=== PATIENT | female | born 1970 | race Caucasian/White ===

== ENCOUNTER → 2016-10-18 | Outpatient (CLI) | payer OTHER ==
[~2016-10-18] MED LIST: ALEVE220 M1 PO; BACITRACIN1 GM OINT TOP; DEXILANT60 MG PO; DICYCLOMINE HCL20 MG PO; LORTAB 5/500 TA1 TA2 PO; NAPROSYN500 MG PO; TYLENOL325 M1 PO
--- NOTE | ~2016-10-18 | US24 ---
[facility] A [facility] RADIOLOGY TEXT RESULTS PATIENT: DARREN THACKER LOCATION: [facility] : 66 UNIT #: [id number] AGE: [address]: Po Gracia MD SEX: F ORDER DR: [id number] [facility]. [place], [place] [address] [id number] O MR#: [id number] Acc #: [id number] NAME: DARREN THACKER. : 1970 SEX: F STUDY DATE/TIME: 10/18/2016 15:03 UNIT: [facility] ROOM: STUDY DESCRIPTION: US Breast Unilateral Attending Physician: Po Gracia M.D. Referring Physician: Po Gracia M.D. Ordering Physician: Po Gracia M.D. Primary Care Physician: Po Gracia M.D. MEDICAL IMAGING REPORT This report is preliminary unless electronic signature is present EXAM Diagnostic right breast ultrasound DATE 10/18/2016 HISTORY Palpable abnormality within the right breast. History of left breast cancer, currently undergoing radiation therapy. COMPARISON Right breast diagnostic mammogram 10/18/2016. Left breast diagnostic mammogram ultrasound 07/06/2016. Bilateral screening mammogram 06/27/2016 and bilateral diagnostic mammogram 06/24/2015. FINDINGS Target sonographic imaging was obtained of the right breast inside patient's palpable complaint. Please refer to the diagnostic mammogram report from same day for full description of mammographic and sonographic findings and recommendations. IMPRESSION Please refer to the diagnostic mammogram report from this same date for full description mammographic and sonographic findings and recommendations. Patient's over the age of 40 are entered into a reminder system with target due date for the next mammogram. A result letter will be sent to the patient. BIRADS: 2 Benign findings. Dictated by... [facility] A [facility] RADIOLOGY TEXT RESULTS PATIENT: DARREN THACKER LOCATION: [facility] : 66 UNIT #: [id number] AGE: [address]: Po Gracia MD SEX: F ORDER DR: Sherine Kevin M.D. THIS IS AN ELECTRONICALLY VERIFIED REPORT Sherine Kevin M.D. at 10/19/2016 2:23 PM H/to TD: 10/18/2016 18:47 JOB #: [id number] MEDICAL IMAGING REPORT Page 1 of 1 COPY
--- NOTE | ~2016-10-18 | MY8 ---
[facility] A Service of [facility] & [facility] RADIOLOGY TEXT RESULTS PATIENT: DARREN THACKER LOCATION: [facility] : 66 UNIT #: [id number] AGE: [address]: Po Gracia MD SEX: F ORDER DR: [id number] [facility] [address] [place], [place] [address] [id number] O MR#: [id number] Acc #: [id number] NAME: DARREN THACKER : 1970 SEX: F STUDY DATE/TIME: 10/18/2016 13:39 UNIT: [facility] ROOM: STUDY DESCRIPTION: MY Mammogram Dx Dig Rt Attending Physician: Po Garcia M.D. Referring Physician: Po Gracia M.D. Ordering Physician: Po Gracia M.D. Primary Care Physician: Po Gracia M.D. MEDICAL IMAGING REPORT This report is preliminary unless electronic signature is present EXAM Right breast digital diagnostic mammogram with CAD. DATE 10/18/2016. HISTORY 46-year-old female, history of breast cancer with left lumpectomy, currently undergoing left breast radiation therapy. Palpable abnormality in the right breast today. COMPARISON Bilateral diagnostic mammogram, 07/06/2016. FINDINGS CC, MLO and true ML view was obtained of the right breast utilizing digital technique and reviewed with an FDA-approved CAD device. Heterogeneously dense fibroglandular tissue is present in the right breast. Triangular markers placed over the upper/inner right breast mid to anterior third at the site of palpable complaint. They are 2 circumscribed partially obscured nodules in this vicinity, each measuring slightly over 2 cm, these are not thought to be significantly changed compared to the 06/27/2016 examination. No new or developing nodule is identified within the right breast. There are no suspicious clustered microcalcifications, and no architectural distortion features are identified, either. No abnormal skin thickening or nipple retraction is seen within the right breast. Targeted diagnostic right breast ultrasound was performed on this same date at the site of the patient's palpable complaint. At approximately 1 o'clock axis of the right breast, there are 2 [id number]-hiir nearly confluent cysts or 1 large complex cyst with internal septation seen. It [facility]. [facility] A Service of [facility] RADIOLOGY TEXT RESULTS PATIENT: DARREN THACKER LOCATION: [facility] : 66 UNIT #: [id number] AGE: [address]: Po Gracia MD SEX: F ORDER DR: appears stable to slightly larger, today measuring 2.6 x 1.6 x 2.7 cm in aggregate, compared to the 06/24/2015 examination where it measured 2.7 x 0.9 x 2.2 cm. Other smaller cysts are seen within the same vicinity, as well. However, no focal suspicious solid mass lesion is identified on today's examination. No sonographic evidence of architectural distortion or microcalcification. IMPRESSION 1. Right breast BIRADS category 2. Benign findings. Slight interval increase in the right breast cyst in the 1 o'clock axis on ultrasound, corresponds to the site of patient's palpable complaint. Multiple other smaller cysts or fibrocystic changes are seen in the same vicinity. However, there is no mammographic or sonographic evidence of malignancy in the right breast on today's examination. 2. According to previous diagnostic left breast ultrasound from 07/06/2016, left breast diagnostic ultrasound followup in approximately December 2016, would be recommended with respect to left breast findings. It is also recommended that the patient undergo annual bilateral screening mammogram in June 2017. 3. Findings and recommendations were discussed with the patient today in the radiology department. Right breast BIRADS 2. Benign findings. Patients over the age of 40 are entered into a reminder system with target due date for the next mammogram. A result letter will also be sent to the patient. BIRADS: 2 Benign findings. Dictated by... Sherine Kevin M.D. THIS IS AN ELECTRONICALLY VERIFIED REPORT Sherine Kevin M.D. at 10/19/2016 2:23 PM ATIF/vu TD: 10/18/2016 17:38 JOB #: [id number] MEDICAL IMAGING REPORT Page 1 of 1 COPY
== END | disposition home or self-care (01) ==
LOC: CMAM 13:14
DX: N63 Unspecified lump in breast (principal); N60.01 Solitary cyst of right breast; C50.912 Malignant neoplasm of unspecified site of left female breast; Z98.890 Other specified postprocedural states
CPT/HCPCS: 76641; G0206